=== PATIENT | male | born 1990 | race Caucasian/White ===

== ENCOUNTER 2018-03-04 22:59 | Inpatient (IN) | payer MEDICAID ==
--- NOTE | 2018-03-04 22:35 | EDPHY ---
HPI/HX/ROS/PE/MDM - Data Points Imaging: Discussed imaging studies w/ national accounts recruiter Radiologist Narrative: CHIEF COMPLAINT: Overdose HISTORY OF PRESENT ILLNESS: The patient is a 23 y/o male with a history of hepatitis C arriving via EMS for an overdose tonight. When EMS arrived the patient was found unresponsive on the floor at [employer]. There was a pack of syringes next to him and track hinojosa on his arms. He was given 4 of Narcan internasally and woke up shortly after. His pupils were 4mm bilaterally. EMS gave the patient 4mg IV Zofran while en route to the emergency department. At this time the patient is awake, but not answering any questions or interacting with us. At one point he mumbled "fuck you". However, he is primarily non-communicative. On arrival he is a sarah faye as he will not or can not tell us his name. REVIEW OF SYSTEMS: Unable to obtain due to patient's non-communicative status. PAST MEDICAL HISTORY: Hepatitis C SOCIAL HISTORY: Single, homeless, polysubstance abuse VITAL SIGNS: Reviewed by me GENERAL: Myoclonic jerking movements with protective maneuvers. Tearful. Well- developed, well-nourished, in no respiratory distress. HEENT: Atraumatic. Eyes: 4mm reactive pupils. No icterus, no injection. Mouth: Unable to examine as patient has mouth clenched shut. Neck: supple with no adenopathy. LUNGS: Clear to auscultation bilaterally, no wheezes, rhonchi or rales. CARDIAC: Regular rate and rhythm, no rubs, murmurs or gallops. ABDOMEN: Soft, no guarding or rebound, nondistended, bowel sounds normal. BACK: No CVA tenderness. EXTREMITIES: No trauma. No edema. NEURO: CHIANG x 4, protective behavior with arm drop. Intermittently appears to be responding to external stimuli-- looking off into the distance and not responding to us in any way. SKIN: Warm and dry, no rash. PSYCHIATRIC: Unable to assess. Portions of this note were transcribed by a medical equipment repair technician. I personally performed a history, physical exam, medical decision making, and confirmed accuracy of information the transcribed note. (Kristina Dudley) ED Course: 7am: I assumed care of this patient at shift change. He presents with altered mental status after being found in the bathroom at [employer]. He has been here over 8 hr and still is quite altered. On my exam, he arouses to sternal rub and looks at me. However he continues to be nonverbal. Given prolonged altered mental status, I will plan to admit him for observation if AMS continues. 0745: opens eyes to sternal rub, no change in mental status. The hospitalist service was consulted for admission. 0830: no change in mental status. Transported to Step-Down Unit. (Zee Espinoza) 6:50 a.m.- (Kinsey Palomino) The patient is a 23 y/o male with a history of hepatitis C arriving via EMS for an overdose tonight. On exam he has 4mm reactive pupils and is tearful. He also has myoclonic jerking movements with protective maneuvers and is mumbling. Labs , EKG, and head CT ordered. 1mg IV Ativan administered. 2236: I met EMS upon arrival. 2244: 12-LEAD EKG: Please see the full report in [facility]. My interpretation: Normal sinus rhythm with a rate of 93, nonspecific ST elevations that are probably early repolarizations. Patient's head CT was negative. Laboratory evaluation including a CBC, electrolytes, LFTs, troponin, CPK are all largely unremarkable. Patient does have some mild elevations of his AST and ALT possibly consistent with his hepatitis-C history. Alcohol is negative. 2345: Patient care has been turned over to Dr. Palomino . Urine tox screen is pending at this time. Plan for continued observation, clearance of potential ingestions, and possible discharged home. (Kristina Dudley) MDM: 6:00 a.m.- U tox was positive for amphetamines and opiates, raising suspicion for opiate intoxication currently. He is now off of supplemental oxygen which she required transiently. He is breathing normally with unremarkable vital signs. He is still quite sedate and not appropriate for discharge. 6:50 a.m.- The patient continues to be asleep, he is still not ready for discharge given his mental status. I anticipate he will be able to go later this morning. The case will be signed out to the oncoming provider Dr. Espinoza. (Kinsey Palomino) After the history was obtained and physical exam performed, the following differential for the patient's altered mental status was considered included but was not limited to hypoglycemia, electrolyte disturbances, intracranial hemorrhage, tumor, drug or alcohol intoxication, stroke, or TIA. (Kristina Dudley ) - Data Points Imaging Results: Imaging Impressions Head CT 03/04/18 22:53 Impression: Mild chronic sinus related change right sphenoid sinus. No evidence for acute intracranial abnormality. Results called and discussed with Kristina Dudley MD at 03/04/2018 23:39. Laboratory Results: Laboratory Results 03/04/18 22:40 03/04/18 22:40 03/04/18 03/04/18 03/04/18 23:55 22:44 22:40 WBC RBC Hgb POC Hgb 13.3 gm/dL L gm/dL (13.7-17.5) Hct POC Hct 39 % L % (40-51) MCV MCH MCHC RDW Plt Count MPV Neut % (Auto) Lymph % (Auto) [place] % (Auto) Eos % (Auto) Baso % (Auto) Nucleat RBC Rel Count Absolute Neuts (auto) Absolute Lymphs (auto) Absolute Monos (auto) Absolute Eos (auto) Absolute Basos (auto) Absolute Nucleated RBC Immature Gran % Immature Gran # POC Sodium 140 mEq/L mEq/L (135-145) Sodium 139 mEq/L mEq/L (135-145) POC Potassium 4.1 mEq/L mEq/L (3.3-5.0) Potassium 4.4 mEq/L mEq/L (3.3-5.0) POC Chloride 98 mEq/L mEq/L (97-110) Chloride 98 mEq/L mEq/L (97-110) Carbon Dioxide 31 mEq/l mEq/l (22-31) Anion Gap 10 mEq/L mEq/L (8-16) POC BUN 19 mg/dL mg/dL (7-23) BUN 18 mg/dL mg/dL (7-23) Creatinine 1.0 mg/dL mg/dL (0.7-1.3) POC Creatinine 1.1 mg/dL mg/dL (0.7-1.3) Estimated GFR > 60 Glucose 90 mg/dL mg/dL (70-100) POC Glucose 95 mg/dL mg/dL (70-100) Calcium 8.8 mg/dL mg/dL (8.5-10.4) Total Bilirubin 1.5 mg/dL H mg/dL (0.1-1.4) Conjugated Bilirubin 0.5 mg/dL mg/dL (0.0-0.5) Unconjugated Bilirubin 1.0 mg/dL mg/dL (0.0-1.1) AST 124 IU/L H IU/L (17-59) ALT 216 IU/L H IU/L (21-72) Alkaline Phosphatase 95 IU/L IU/L (38-126) Creatine Kinase 217 IU/L IU/L (0-224) Troponin I < 0.012 ng/mL ng/mL (0.000-0.034) Total Protein 7.5 g/dL g/dL (6.3-8.2) Albumin 4.1 g/dL g/dL (3.5-5.0) Lipase 28 IU/L IU/L (23-300) Urine Color YELLOW Urine Appearance CLEAR Urine pH 5.0 (5.0-7.5) Ur Specific [place] 1.010 (1.002-1.030) Urine Protein NEGATIVE (NEGATIVE) Urine Ketones NEGATIVE (NEGATIVE) Urine Blood NEGATIVE (NEGATIVE) Urine Nitrate NEGATIVE (NEGATIVE) Urine Bilirubin NEGATIVE (NEGATIVE) Urine Urobilinogen NEGATIVE EU EU (0.2-1.0) Ur Leukocyte Esterase NEGATIVE (NEGATIVE) Urine RBC NONE SEEN /hpf /hpf (0-3) Urine WBC 1-3 /hpf /hpf (0-3) Ur Epithelial Cells NONE SEEN /lpf /lpf (NONE-1+) Urine Bacteria TRACE /hpf H /hpf (NONE SEEN) Urine Mucus TRACE /lpf /lpf (NONE-1+) Urine Sperm PRESENT /hpf /hpf (NONE SEEN) Urine Glucose NEGATIVE (NEGATIVE) Salicylates < 1.0 mg/dL L mg/dL (2.0-20.0) Urine Opiates Screen NON-NEGATIVE H (NEGATIVE) Acetaminophen < 10 mcg/mL L mcg/mL (10-30) Urine Barbiturates NEGATIVE (NEGATIVE) Ur Phencyclidine Scrn NEGATIVE (NEGATIVE) Ur Amphetamine Screen NON-NEGATIVE H (NEGATIVE) U Benzodiazepines Scrn NEGATIVE (NEGATIVE) Urine Cocaine Screen NEGATIVE (NEGATIVE) U Marijuana (THC) Screen NEGATIVE (NEGATIVE) Ethyl Alcohol < 10 mg/dL mg/dL (0-10) 03/04/18 22:40 WBC 7.53 10^3/uL 10^3/uL (3.80-9.50) RBC 4.44 10^6/uL 10^6/uL (4.40-6.38) Hgb 13.1 g/dL L g/dL (13.7-17.5) POC Hgb Hct 39.8 % L % (40.0-51.0) POC Hct MCV 89.6 fL fL (81.5-99.8) MCH 29.5 pg pg (27.9-34.1) MCHC 32.9 g/dL g/dL (32.4-36.7) RDW 15.6 % H % (11.5-15.2) Plt Count 271 10^3/uL 10^3/uL (150-400) MPV 9.1 fL fL (8.7-11.7) Neut % (Auto) 51.3 % % (39.3-74.2) Lymph % (Auto) 31.6 % % (15.0-45.0) [place] % (Auto) 13.4 % H % (4.5-13.0) Eos % (Auto) 2.5 % % (0.6-7.6) Baso % (Auto) 0.8 % % (0.3-1.7) Nucleat RBC Rel Count 0.0 % % (0.0-0.2) Absolute Neuts (auto) 3.86 10^3/uL 10^3/uL (1.70-6.50) Absolute Lymphs (auto) 2.38 10^3/uL 10^3/uL (1.00-3.00) Absolute Monos (auto) 1.01 10^3/uL H 10^3/uL (0.30-0.80) Absolute Eos (auto) 0.19 10^3/uL 10^3/uL (0.03-0.40) Absolute Basos (auto) 0.06 10^3/uL 10^3/uL (0.02-0.10) Absolute Nucleated RBC 0.00 10^3/uL 10^3/uL (0-0.01) Immature Gran % 0.4 % % (0.0-1.1) Immature Gran # 0.03 10^3/uL 10^3/uL (0.00-0.10) POC Sodium Sodium POC Potassium Potassium POC Chloride Chloride Carbon Dioxide Anion Gap POC BUN BUN Creatinine POC Creatinine Estimated GFR Glucose POC Glucose Calcium Total Bilirubin Conjugated Bilirubin Unconjugated Bilirubin AST ALT Alkaline Phosphatase Creatine Kinase Troponin I Total Protein Albumin Lipase Urine Color Urine Appearance Urine pH Ur Specific [place] Urine Protein Urine [place]ones Urine Blood Urine Nitrate Urine Bilirubin Urine Urobilinogen Ur Leukocyte Esterase Urine RBC Urine WBC Ur Epithelial Cells Urine Bacteria Urine Mucus Urine Sperm Urine Glucose Salicylates Urine Opiates Screen Acetaminophen Urine Barbiturates Ur Phencyclidine Scrn Ur Amphetamine Screen U Benzodiazepines Scrn Urine Cocaine Screen U Marijuana (THC) Screen Ethyl Alcohol Medications Given: Discontinued Medications Sodium Chloride (Ns) 1,000 mls @ 0 mls/hr IV ONCE ONE; Wide Open PRN Reason: Protocol Stop: 03/04/18 23:51 Last Admin: 03/04/18 23:55 Dose: 1,000 mls Lorazepam (Ativan Injection) 1 mg IVP EDNOW ONE Stop: 03/04/18 22:56 Last Admin: 03/04/18 22:55 Dose: 1 mg Point of Care Test Results: 03/04/18 22:44 POC Sodium 140 POC Potassium 4.1 POC Chloride 98 POC BUN 19 POC Creatinine 1.1 POC Glucose 95 General Time Seen by Provider: 03/04/18 22:36 Initial Vital Signs: Initial Vital Signs Temperature (C) 36.4 C 03/04/18 22:41 Heart Rate 93 03/04/18 22:41 Respiratory Rate 17 03/04/18 22:41 Blood Pressure 127/101 H 03/04/18 22:41 O2 Sat (%) 94 03/04/18 22:41 O2 Delivery Mode Room Air O2 (L/minute) 2 Allergies/Adverse Reactions: No Known Allergies Allergy (Unverified 03/05/18 14:27) Home Medications: Medication Instructions Recorded Mirtazapine [Remeron] 30 mg PO BID 03/05/18 Multivitamins [Multivitamin (*)] 1 each PO DAILY 03/05/18 OLANZapine [Zyprexa] 20 mg PO HS 03/05/18 busPIRone [Buspar (*)] 20 mg PO BID 03/05/18 Departure - Departure Disposition: [facility] Acute Clinical Impression: Polysubstance abuse, Opiate use Condition: Good Report Scribed for: Kristina Dudley Report Scribed by: Diane Rivas Date of Report: 03/04/18 Time of Report: 22:35
--- NOTE | 2018-03-04 22:51 | CPEKG ---
Heart Rate: 93 RR Interval: 645 P-R Interval: 200 QRSD Interval: 106 QT Interval: 372 QTC Interval: 463 P [place]: 57 QRS [place]: 63 T Wave [place]: 50 EKG Severity - OTHERWISE NORMAL ECG - EKG Impression: SINUS RHYTHM EKG Impression: VENTRICULAR PREMATURE COMPLEX EKG Impression: ST ELEV, PROBABLE NORMAL EARLY REPOL PATTERN Electronically Signed By: Kristina Dudley 05-Mar-2018 00:01:17
[~2018-03-04 22:59] MED LIST: LORazepam 2 MG/ML INJ IVP ONE; LORazepam 2 MG/ML INJ ONE
[2018-03-04 23:00] LABS: PLATELET COUNT 271 10^3/uL (150-400)
[2018-03-04 23:25] LABS: CREATINE KINASE 217 IU/L (0-224)
[2018-03-04] MEDS ORDERED: NS 1,000 ML IV ONE (23:50)
[2018-03-05] MEDS ORDERED: PROMETHAZINE HCL 25 MG/ML INJ IVP PRN (09:15)
[2018-03-05] MEDS ORDERED: ONDANSETRON 4 MG/2 ML VIAL IVP PRN (09:15)
--- NOTE | 2018-03-05 09:22 | PDGENHP ---
History and Physical - Chief Complaint Acute unresponsiveness - History of Present Illness Primary care provider: Unknown HPI: 23-year-old male presenting with acute unresponsiveness, found down on the floor in the bathroom [place] [employer], with some visible syringes on his person. EMS was called, patient received 4 mg of Narcan intranasally, and he became slightly more arousable. He was transported to the [facility] Emergency Department, where he continued to be responsive only to painful stimuli, intermittently mumbling, and not following commands. He was in the emergency department in this state for approximately 8 hr without demonstrable improvement. He did receive additional Narcan as well as Ativan during that interval. The patient was unable to provide any additional history. He remained hemodynamically stable during his care in the emergency department and he did not have any witnessed aspiration. History Information - Allergies/Home Medication List Allergies/Adverse Reactions: Unable to Assess Allergy (Unverified 03/04/18 22:49) I have personally reviewed and updated: family history, medical history, social history, surgical history - Past Medical History Additional medical history: Reports bipolar disease, reports that he is on Zyprexa and Remeron, reports he has not been taking recently - Surgical History Additional surgical history: Unobtainable from the patient at this time - Family History Additional family history: Unobtainable from the patient at this time - Social History Smoking Status: Unknown if ever smoked Additional social history: Unobtainable from the patient at this time Review of Systems Review of Systems: ROS: 10pt was reviewed & negative except for what was stated in HPI & below ( Otherwise unobtainable from the patient at this time) Neurological: Reports: other (Unresponsiveness) Physical Exam Physical Exam: Temp Pulse Resp BP Pulse Ox 36.6 C 72 10 L 126/64 H 98 03/05/18 08:57 03/05/18 08:57 03/05/18 08:57 03/05/18 08:57 03/05/18 08:57 Constitutional: no apparent distress, appears nourished, not in pain, other ( Somewhat sweaty appearing), No uncomfortable Eyes: other (People's mildly dilated, reactive to light, roving, able to track) Ears, Nose, Mouth, Throat: other (Sticky secretions on his lips, patient unable to fully open his mouth for full exam) Cardiovascular: regular rate and rhythym, no murmur, rub, or gallop, No edema Respiratory: no respiratory distress, no rales or rhonchi, clear to auscultation , other (poor effort) Gastrointestinal: normoactive bowel sounds, distension (mildly), No tenderness, No guarding Genitourinary: other (full bladder) Skin: other (track micah R antecubital fossa, blanching confluent RUE dorsally w/ o overt induration or fluctuance, no track hinojosa on feet, achne on face) Neurologic: other (verbalizes some one word answers, moving limbs spontaneously , intermittently) Psychiatric: other (no following commands, responds to speaker to voice) Lab Data & Imaging Review 03/04/18 22:40 03/04/18 22:40 WBC 7.53 10^3/uL (3.80-9.50) 03/04/18 22:40 RBC 4.44 10^6/uL (4.40-6.38) 03/04/18 22:40 Hgb 13.1 g/dL (13.7-17.5) L 03/04/18 22:40 POC Hgb 13.3 gm/dL (13.7-17.5) L 03/04/18 22:44 Hct 39.8 % (40.0-51.0) L 03/04/18 22:40 POC Hct 39 % (40-51) L 03/04/18 22:44 MCV 89.6 fL (81.5-99.8) 03/04/18 22:40 MCH 29.5 pg (27.9-34.1) 03/04/18 22:40 MCHC 32.9 g/dL (32.4-36.7) 03/04/18 22:40 RDW 15.6 % (11.5-15.2) H 03/04/18 22:40 Plt Count 271 10^3/uL (150-400) 03/04/18 22:40 MPV 9.1 fL (8.7-11.7) 03/04/18 22:40 Neut % (Auto) 51.3 % (39.3-74.2) 03/04/18 22:40 Lymph % (Auto) 31.6 % (15.0-45.0) 03/04/18 22:40 [place] % (Auto) 13.4 % (4.5-13.0) H 03/04/18 22:40 Eos % (Auto) 2.5 % (0.6-7.6) 03/04/18 22:40 Baso % (Auto) 0.8 % (0.3-1.7) 03/04/18 22:40 Nucleat RBC Rel Count 0.0 % (0.0-0.2) 03/04/18 22:40 Absolute Neuts (auto) 3.86 10^3/uL (1.70-6.50) 03/04/18 22:40 Absolute Lymphs (auto) 2.38 10^3/uL (1.00-3.00) 03/04/18:40 Absolute Monos (auto) 1.01 10^3/uL (0.30-0.80) H 03/04/18 22:40 Absolute Eos (auto) 0.19 10^3/uL (0.03-0.40) 03/04/18 22:40 Absolute Basos (auto) 0.06 10^3/uL (0.02-0.10) 03/04/18 22:40 Absolute Nucleated RBC 0.00 10^3/uL (0-0.01) 03/04/18:40 Immature Gran % 0.4 % (0.0-1.1) 03/04/18:40 Immature Gran # 0.03 10^3/uL (0.00-0.10) 03/04/18 22:40 POC Sodium 140 mEq/L (135-145) 03/04/18 22:44 Sodium 139 mEq/L (135-145) 03/04/18 22:40 POC Potassium 4.1 mEq/L (3.3-5.0) 03/04/18 22:44 Potassium 4.4 mEq/L (3.3-5.0) 03/04/18 22:40 POC Chloride 98 mEq/L (97-110) 03/04/18 22:44 Chloride 98 mEq/L (97-110) 03/04/18 22:40 Carbon Dioxide 31 mEq/l (22-31) 03/04/18 22:40 Anion Gap 10 mEq/L (8-16) 03/04/18 22:40 POC BUN 19 mg/dL (7-23) 03/04/18 22:44 BUN 18 mg/dL (7-23) 03/04/18 22:40 Creatinine 1.0 mg/dL (0.7-1.3) 03/04/18 22:40 POC Creatinine 1.1 mg/dL (0.7-1.3) 03/04/18 22:44 Estimated GFR > 60 03/04/18 22:40 Glucose 90 mg/dL (70-100) 03/04/18 22:40 POC Glucose 95 mg/dL (70-100) 03/04/18 22:44 Calcium 8.8 mg/dL (8.5-10.4) 03/04/18 22:40 Total Bilirubin 1.5 mg/dL (0.1-1.4) H 03/04/18 22:40 Conjugated Bilirubin 0.5 mg/dL (0.0-0.5) 03/04/18 22:40 Unconjugated Bilirubin 1.0 mg/dL (0.0-1.1) 03/04/18 22:40 AST 124 IU/L (17-59) H 03/04/18 22:40 ALT 216 IU/L (21-72) H 03/04/18 22:40 Alkaline Phosphatase 95 IU/L (38-126) 03/04/18 22:40 Creatine Kinase 217 IU/L (0-224) 03/04/18 22:40 Troponin I < 0.012 ng/mL (0.000-0.034) 03/04/18 22:40 Total Protein 7.5 g/dL (6.3-8.2) 03/04/18 22:40 Albumin 4.1 g/dL (3.5-5.0) 03/04/18 22:40 Lipase 28 IU/L (23-300) 03/04/18 22:40 Urine Color YELLOW 03/04/18 23:55 Urine Appearance CLEAR 03/04/18 23:55 Urine pH 5.0 (5.0-7.5) 03/04/18 23:55 Ur Specific [place] 1.010 (1.002-1.030) 03/04/18 23:55 Urine Protein NEGATIVE (NEGATIVE) 03/04/18 23:55 Urine Ketones NEGATIVE (NEGATIVE) 03/04/18 23:55 Urine Blood NEGATIVE (NEGATIVE) 03/04/18 23:55 Urine Nitrate NEGATIVE (NEGATIVE) 03/04/18 23:55 Urine Bilirubin NEGATIVE (NEGATIVE) 03/04/18 23:55 Urine Urobilinogen NEGATIVE EU (0.2-1.0) 03/04/18 23:55 Ur Leukocyte Esterase NEGATIVE (NEGATIVE) 03/04/18 23:55 Urine RBC NONE SEEN /hpf (0-3) 03/04/18 23:55 Urine WBC 1-3 /hpf (0-3) 03/04/18 23:55 Ur Epithelial Cells NONE SEEN /lpf (NONE-1+) 03/04/18 23:55 Urine Bacteria TRACE /hpf (NONE SEEN) H 03/04/18 23:55 Urine Mucus TRACE /lpf (NONE-1+) 03/04/18 23:55 Urine Sperm PRESENT /hpf (NONE SEEN) 03/04/18 23:55 Urine Glucose NEGATIVE (NEGATIVE) 03/04/18 23:55 Salicylates < 1.0 mg/dL (2.0-20.0) L 03/04/18 22:40 Urine Opiates Screen NON-NEGATIVE (NEGATIVE) H 03/04/18 23:55 Acetaminophen < 10 mcg/mL (10-30) L 03/04/18 22:40 Urine Barbiturates NEGATIVE (NEGATIVE) 03/04/18 23:55 Ur Phencyclidine Scrn NEGATIVE (NEGATIVE) 03/04/18 23:55 Ur Amphetamine Screen NON-NEGATIVE (NEGATIVE) H 03/04/18 23:55 U Benzodiazepines Scrn NEGATIVE (NEGATIVE) 03/04/18 23:55 Urine Cocaine Screen NEGATIVE (NEGATIVE) 03/04/18 23:55 U Marijuana (THC) Screen NEGATIVE (NEGATIVE) 03/04/18 23:55 Ethyl Alcohol < 10 mg/dL (0-10) 03/04/18 22:40 Visualized and Interpreted EKG results: Yes EKG Interpretation: Positive for: other (Sinus mechanism, isolated ST elevation in V2) Assessment & Plan Assessment: 23-year-old male presents with acute encephalopathy in the setting of suspected opiate overdose Plan: 1. Acute encephalopathy. New problem this provider, further workup indicated. Unresponsiveness with delayed recovery, most likely secondary to unintentional opiate overdose with drug paraphernalia found on the patient's person, urine tox positive for opiates, and responsiveness to Narcan -patient currently not demonstrating evidence of airway compromise, continue on 2 L nasal cannula supportive care -check chest x-ray to ensure no aspiration -given patient's protracted course, monitor him closely for cognitive and functional recovery in the step-down unit, and obtain additional history from patient once he has regained the ability to speak and communicate clearly -bedside swallow eval, then advance diet to regular if tolerates -physical, occupational, speech therapy evaluations all placed, perform as needed depending on patient's recovery -avoid any sedating medications, as the patient will likely begin to demonstrate responsiveness and if he becomes agitated, then we should reassess whether the patient demonstrates capacity to make medical decisions and direct his own care rather than medicating him with sedating medications 2. Suspected opiate overdose. Is unclear whether intentional versus unintentional, will require additional history taking once the patient is able to verbally communicate, positive tox screen, right upper extremity track hinojosa with likely site irritation rather than cellulitis, with normal white blood cell count, no fever -discussed with social work, they will provide additional counseling assistance the patient once he is more awake and communicative -[facility] behavioral health nurse consult requested, to assist in facilitating care for possible drug addiction -evidence of transaminitis, suspect patient may have hep C, will consent patient for HIV and hep C testing when he is more communicative -patient will require outpatient follow up with primary care provider 3. Acute urinary retention. Bladder scan with greater than 500 cc, straight catheterization demonstrating 900 mL of urine, retention most likely secondary to opiate overdose -avoid Good catheter, straight cath as needed, patient attempted to utilize urinal unsuccessfully, continue to encourage urinal use 4. Bipolar disease. Unclear type, reported history per patient, patient reports he has not recently been on his home medications which are Zyprexa and Remeron -patient's presentation is more consistent with an opiate overdose rather than malignant catatonia, with normal CPK and normal white blood cell count -given the patient reported that he has not been taking his home medications it is unlikely that his current presentation is secondary to a polypharmacy overdose -patient will require reestablishment of outpatient mental health services, assistance from social work and [facility] requested Diet. Swallow eval, then regular passes Prophylaxis. High risk patient, Lovenox for Code. Full at present Disposition. Anticipated discharge is 03/05 versus 03/06, depending on patient's physical and cognitive recovery. Discussed patient's presentation with Zee Espinoza in the emergency department, she has reported to me the patient demonstrated protracted encephalopathy and required additional monitoring, we both agree that the step-down unit is most appropriate location for this. 40 min of critical care time spent with this patient, addressing the conditions outlined above, coordinating his care with the above-mentioned providers, patient remains high risk of worsening morbidity and/or mortality if he develops any complications from his suspected opiate overdose and resultant encephalopathy, remaining critically ill at this time.
[2018-03-05] MEDS ORDERED: NON-FORMULARY NEW DRUG (Olanzapine [Zyprexa] 20 MG) PO SCH (21:00)
[2018-03-05] MEDS: MIRTAZAPINE 30 MG TAB PO SCH (21:04)
[2018-03-05] MEDS: OLANZapine DISINTEGR 10 MG TAB PO SCH (21:04)
[2018-03-05] MEDS: busPIRone 10 MG TAB PO SCH (21:04)
[2018-03-06 04:57] LABS: PLATELET COUNT 263 10^3/uL (150-400)
[2018-03-06] MEDS: busPIRone 10 MG TAB PO SCH ×2 (08:02→22:34)
[2018-03-06] MEDS: MIRTAZAPINE 30 MG TAB PO SCH ×2 (08:02→22:34)
[2018-03-06] MEDS: ENOXAPARIN 40 MG/0.4 ML SYR SC SCH (08:02)
[2018-03-06] MEDS: MULTIVITAMINS 1 EACH TAB PO SCH (08:02)
--- NOTE | 2018-03-06 09:33 | PDMN ---
Medical Necessity Medical necessity: Patient meets inpatient criteria per physician note and MCG M -153 Drug Ingestion or Overdose (persistent acute encephalopathy d/to suspected opiate overdose; progressively more lethargic during the day, now minimally responsive; anticipated LOS > 2 midnights for ongoing close surveillance in SDU. )
--- NOTE | 2018-03-06 18:08 | HOSPPROG ---
Hospitalist Progress Note Assessment/Plan: Assessment: 23-year-old male presents with acute encephalopathy in the setting of suspected opiate overdose Plan: 1. Acute encephalopathy. Ongoing lethargy today, patient arousable to verbal stimuli, not engaging but he is able to perform certain self-care (self-feeding) -he remains very withdrawn and lethargic, and I suspect that he is experiencing amphetamine withdraw, as his tox was positive for amphetamines and overwhelming fatigue is a hallmark feature -although patient is able to now verbally respond to some questions, he reports he is very fatigued and can barely move, has very limited interaction -d/w Dr. Millard on rounds, we agree that most appropriate location of care is med surg, allow for gradual recovery 2. Suspected opiate overdose. Is unclear whether intentional versus unintentional, patient was recovered from the [employer] bathroom and had drug paraphenalia on his person w/ reported narcan in his bag, responded to narcan administered by EMS -no airway compromise, weaned to room air -requires SW counseling to assist w/ resources -patient reports to me that he is homeless, lives in [place], does not have any family/friends locally, and he is afraid of legal consequences as he may be on probation 3. Acute urinary retention. 2/2 opiates, resolved 4. Bipolar disease. Unclear type, reported history per patient, patient reports he has not recently been on his home medications -restarted home medications -resource RN unavailable to see patient, appreciate SW assistance w/ reconnecting him to outpt mental health resources 5. Sunburn. RUE, cont to monitor 6. Transaminitis. Likely 2/2 HCV, given that he has IVDU, check HCV and HIV status Diet. Reg Prophylaxis. High risk patient, Lovenox 40 Code. Full Disposition. ADD 6/2, pending ability to interact, perform self-care Subjective: patient reports he is too fatigued to keep eyes open or interact more on exam Objective: Vital Signs Temp Pulse Resp BP Pulse Ox 37.0 C 104 H 16 129/76 H 94 03/06/18 15:11 03/06/18 15:11 03/06/18 15:11 03/06/18 15:11 03/06/18 15:11 Laboratory Results 03/06/18 04:51 03/06/18 04:51 03/05/18 03/06/18 03/07/18 05:59 05:59 05:59 Intake Total 1720 500 Output Total 4650 1000 Balance -2930 -500 - Physical Exam Constitutional: no apparent distress, not in pain, unkempt, other (sweaty), No uncomfortable Eyes: PERRL, anicteric sclera, EOMI Cardiovascular: No systolic murmur, No irregularly irregular, No tachycardia, No edema Respiratory: no respiratory distress, no rales or rhonchi, clear to auscultation Gastrointestinal: normoactive bowel sounds, soft, non-tender abdomen, no palpable masses, No distension Skin: other (track micah R antecubital fossa, blanching sunburn R arm dorsal surface) Psychiatric: not anxious, flat affect, other (one-word answers, unengaged interaction, does not follow commands), No agitated ICD10 Worksheet Patient Problems: Problems Problem Status Onset Polysubstance abuse Acute Opiate use Acute
[2018-03-06] MEDS: OLANZapine DISINTEGR 10 MG TAB PO SCH (22:34)
[2018-03-07] MEDS: NS 1,000 ML IV SCH ×2 (06:33→12:41)
[2018-03-07] MEDS: MULTIVITAMINS 1 EACH TAB PO SCH (07:58)
[2018-03-07] MEDS: busPIRone 10 MG TAB PO SCH (07:58)
[2018-03-07] MEDS: MIRTAZAPINE 30 MG TAB PO SCH (07:58)
[2018-03-07] MEDS: ENOXAPARIN 40 MG/0.4 ML SYR SC SCH (07:59)
[2018-03-07 08:14] LABS: PLATELET COUNT 260 10^3/uL (150-400)
[2018-03-07 08:25] VITALS: BP 144/86
--- NOTE | 2018-03-07 13:03 | HOSPPROG ---
Hospitalist Progress Note Assessment/Plan: 3-year-old male presents with acute encephalopathy in the setting of suspected opiate overdose. patient was recovered from the [employer] bathroom and had drug paraphenalia on his person w/ reported narcan in his bag, responded to narcan administered by [facility] encounter, chart reviewed. D/W SW and RN. Plan: # Acute encephalopathy. -resolved -Ongoing lethargy #Depression -patient arousable to verbal stimuli, not engaging but he is able to perform certain self-care (self-feeding) -he remains very withdrawn and lethargic -[facility] eval -contracts for safety #Amphetamine withdrawal -stable -lethargic, withdrawn -tox was positive for amphetamines and overwhelming fatigue is a hallmark feature -he reports he is very fatigued and can barely move, has very limited interaction # Suspected opiate overdose. -unintentional per pt -no airway compromise, weaned to room air -requires SW counseling to assist w/ resources -patient reports that he is homeless, lives in [place], does not have any family/ friends locally, and he is afraid of legal consequences as he may be on probation # Acute urinary retention. -2/2 opiates, resolved # Bipolar disease. -Unclear type, reported history per patient, patient reports he has not recently been on his home medications -restarted home medications -resource RN unavailable to see patient, appreciate SW assistance w/ reconnecting him to outpt mental health resources -[facility] eval # Sunburn. -RUE, stable # Transaminitis. -Hep panel,HIV pending #Dispo -medically ready for DC -await further psych eval from [facility] -D/W SW Subjective: Minimal interaction. Denies pain. Not hungry. Objective: Vital Signs Temp Pulse Resp BP Pulse Ox 36.6 C 88 12 144/86 H 94 03/07/18 08:00 03/07/18 08:00 03/07/18 08:00 03/07/18 08:00 03/07/18 08:00 Laboratory Results 03/07/18 08:10 03/07/18 08:10 03/06/18 03/07/18 03/08/18 05:59 05:59 05:59 Intake Total 1720 650 Output Total 4650 1700 750 Balance -2930 -1050 -750 - Physical Exam Constitutional: appears nourished, not in pain, uncomfortable Eyes: PERRL, anicteric sclera, EOMI Ears, Nose, Mouth, Throat: hearing normal, poor dentition, dry mucous membranes Cardiovascular: No JVD, No tachycardia, No edema Respiratory: no respiratory distress, no rales or rhonchi, reduced air movement Gastrointestinal: normoactive bowel sounds, No tenderness, No ascites Skin: warm, abrasion, erythema Musculoskeletal: normal joint ROM, no joint effusions, generalized weakness Neurologic: AAOx3 Psychiatric: not encephalopathic, depressed, flat affect, poor insight, poor judgement, No interacting appropriately, No suicidal ideation ICD10 Worksheet Patient Problems: Problems Problem Status Onset Polysubstance abuse Acute Opiate use Acute
--- NOTE | 2018-03-07 15:33 | ASDISCHSUM ---
Discharge Information Plan Status:Home with No Needs Medically Cleared to Leave:03/07/2018 Discharge Date:03/07/2018 CM D/C Disposition:Against Medical Advice ADT D/C Disposition: Projected Discharge Date:03/07/2018 Transportation at D/C:Self Discharge Delay Reason: Follow-Up Date:03/07/2018 Discharge Slot: Final Diagnosis: Placement Information Patient Contact Information Contact Name:NPPT Relationship: Address: Home Phone: Work Phone: City: Alternate Phone: State/[place] Search Code: Email: Financial Information Financial Class:Medicaid Primary Plan Desc:[employer] [place] [place] Primary Plan Number:[id number] Secondary Plan Desc: Secondary Plan Number: Assessment Information Intervention Information
--- NOTE | 2018-03-07 16:22 | ASMTCMCOM ---
CM Note CM Note Notes: Pt was admitted with a drug OD after being found down in the [employer] store. He had Narcan in his bag which bacon stringer administered. He has a hx of Bipolar d/o and has been off his meds. Pt states he is homeless and usually stays in the [place] area. He did not elaborate on why he was in [place]. He has a sister in [place] and told his RN he isn't in touch with her or his mother. He seemed interested in some resources earlier today but was quite somnolent and difficult to arouse to talk with. Hospitalist requested a [facility] psych eval prior to d/c. When [facility] analysis evaluator attempted to speak with him, he became verbally aggressive and demanded his IV out and said he wanted to leave. Pt is leaving AMA. Date Signed: 03/07/2018 04:22 PM Electronically Signed By:LETHA Brandt
--- NOTE | 2018-03-07 16:24 | ASMTLACE ---
LACE Length of stay for Answers: 2 days current admission Acuity / Level of Answers: Yes Care: Did the patient have an inpatient admission? # of Emergency department Answers: 1-2 visits in the last 6 months Social determinants Answers: History of substance abuse (ETOH, street drugs, prescription drugs, etc.) Homelessness (street, skilled nursing) Mental health diagnosis (anxiety, depression, pers onality disorders, etc.) Lack of community resources and/or lack of social support (no pcp, lives alone, transportation, david d) Score: 19 Date Signed: 03/07/2018 04:23 PM Electronically Signed By:LETHA Brandt
--- NOTE | 2018-03-08 11:10 | GDS ---
[f rep st] DISCHARGE SUMMARY DISCHARGE DIAGNOSES: 1. Acute encephalopathy. 2. Depression. 3. Amphetamine withdrawal. 4. Suspected opioid overdose. 5. Urinary retention. 6. Bipolar disorder. 7. Sunburn. 8. Transaminitis. CONSULTATIONS: [facility]. STUDIES/PROCEDURES: CT of the head. PHYSICAL EXAMINATION: GENERAL: The patient is alert. VITAL SIGNS: Afebrile at 36.6, pulse is 88, respiratory rate is 12, blood pressure is 144/86. He is saturating 94% on room air. I have seen toby cervantesated the patient on the day of discharge. HOSPITAL COURSE: The patient is a 28-year-old male who was found down and brought to the emergency r oom. He was evaluated and diagnosed with: 1. Acute encephalopathy. This is in the setting of drug use. He received Narcan and responded well . His encephalopathy has resolved. 2. Suspected opiate overdose. This is unintentional per the patient. He denies any suicidal ideati on. He did receive evaluation from [facility], who had cleared him to be discharged from the hospital. He is able to contract for safety. Social Work has been involved and he will be discharged to the [facility]. 3. Amphetamine withdrawal. This is stable and is able to managed in the outpatient setting. 4. Depression. The patient is depressed; however, [facility] has evaluated. He is trish for safety and is not suicidal. 5. Bipolar disorder. His medications have been continued. It is recommended that he continue to ta ke these medications in the outpatient setting. 6. Transaminitis. LFTs are improving. Hepatitis panel is pending at the time of disposition. DISPOSITION: On discharge, the patient will be discharged to the street as he is homeless. Social Nidhi brewer has provided any resources that are available. Followup will be at [facility], which has be en arranged for him. DISCHARGE MEDICATIONS: Please refer to EMR form. I have not provided the patient any prescriptions at the time of disposition. I spent greater than 35 minutes in the care, coordination, and management of this patient's discharge . /[id number]/MODL
[2018-03-09 04:10] LABS: HEPATITIS B SURFACE ANTIGEN NEGATIVE (NEGATIVE)
[2018-03-09 04:16] LABS: HEPATITIS A ANTIBODY IGM (BCH) NEGATIVE (NEGATIVE); HEPATITIS B CORE AB IGM NEGATIVE (NEGATIVE)
[2018-03-09 04:27] LABS: HEPATITIS C ANTIBODY TOTAL REACTIVE (NEGATIVE)
[2018-03-09 04:52] LABS: HIV TYPE 1 AND 2 NEGATIVE (NEGATIVE)
== END 2018-03-07 16:53 | disposition left against medical advice (07) | DRG 812 ==
LOC: EDBD 03-05 07:44 → OBSVTOIN 03-05 07:44 → F2N 03-05 08:43 → F3E 03-06 14:18
PROVIDERS: ADMIT Internal Medicine; ATTEND Hospitalist
PROC: HZ2ZZZZ Detoxification Services for Substance Abuse Treatment (ICD-10-PCS; principal; 2018-03-05)
DX: T40.2X1A Poisoning by other opioids, accidental (unintentional), initial encounter (principal); F11.121 Opioid abuse with intoxication delirium; F15.220 Other stimulant dependence with intoxication, uncomplicated; F15.23 Other stimulant dependence with withdrawal; R33.9 Retention of urine, unspecified; B18.2 Chronic viral hepatitis C; L55.0 Sunburn of first degree; F32.9 Major depressive disorder, single episode, unspecified; F31.9 Bipolar disorder, unspecified; Z59.0 Homelessness
CPT/HCPCS: 80305; 82947-QW; 96374; 97161-GP; G0472; G0480; J1650; J2060

== ENCOUNTER 2018-03-11 00:57 | Emergency (ER) | payer MEDICAID ==
--- NOTE | 2018-03-11 01:27 | EDPHY ---
H & P Stated Complaint: L leg pain and swelling after fall Time Seen by Provider: 03/11/18 01:15 HPI/ROS: Chief Complaint: Leg pain and swelling HPI: 28-year-old male's presenting with left leg pain and swelling which began earlier today after a fall. Patient states that he was standing on a rock when he slipped and struck the front of his left leg. He has had significant pain and swelling since that time. Patient was discharged 2 days ago after being admitted for an accidental opioid overdose. Patient has a history of bipolar disorder and hepatitis. Denies hitting his head. No loss of consciousness. Patient denies injecting heroin into his legs, states he only uses his arms. No fevers or chills. He is a little unclear as to time frame in dates because he is continuing to use opioids. ROS: 10 point Review of Systems is negative except as noted in the HPI. PMH: Hepatitis-C, chronic opioid abuse, bipolar disorder Social History: Positive smoking, heroin use Family History: non-contributory Physical Exam: Gen: Awake, Alert, No Distress HEENT: Nose: no rhinorrhea Eyes: PERRLA, EOMI Mouth: Moist mucosa Neck: Supple, no JVD Chest: nontender, lungs clear to auscultation Heart: S1, S2 normal, no murmur Abd: Soft, non-tender, no guarding Back: no CVA tenderness, no midline tenderness Ext: Left leg is markedly add edematous from his ft just below the knee. There is a small abrasion in the anterior lower 3rd of the leg. He has significant edema. No obvious deformity Skin: no rash Neuro: CN II-XII intact, Sensation grossly intact, Strength 5/5 in bilateral upper and lower extremities - Personal History Current Tetanus/Diphtheria Vaccine: Yes - Medical/Surgical History Hx Asthma: No Hx Chronic Respiratory Disease: No Hx Diabetes: No Hx Cardiac Disease: No Hx Renal Disease: No Hx Cirrhosis: No Hx Alcoholism: No Hx HIV/AIDS: No Hx Splenectomy or Spleen Trauma: No Other PMH: bipolar, anxiety, depression, heroin abuse, hep C - Social History Smoking Status: Current every day smoker Constitutional: Initial Vital Signs Temperature (C) 37.7 C 03/11/18 01:17 Heart Rate 119 H 03/11/18 01:17 Respiratory Rate 18 03/11/18 01:17 Blood Pressure 144/70 H 03/11/18 01:17 O2 Sat (%) 97 03/11/18 01:17 O2 Delivery Mode Room Air Allergies/Adverse Reactions: No Known Allergies Allergy (Unverified 03/05/18 14:27) Home Medications: Medication Instructions Recorded Mirtazapine [Remeron] 30 mg PO BID 03/05/18 Multivitamins [Multivitamin (*)] 1 each PO DAILY 03/05/18 OLANZapine [Zyprexa] 20 mg PO HS 03/05/18 busPIRone [Buspar (*)] 20 mg PO BID 03/05/18 Medical Decision Making - Diagnostics Imaging Results: Left leg x-rays and ankle x-rays are negative per my interpretation. Left lower extremity ultrasound is negative for DVT. It is positive for cellulitis per Dr. Waters. ED Course/Re-evaluation: 28-year-old male with a history of opioid dependence and heroin use is presenting with redness and swelling of his left leg. X-rays are negative. Ultrasound is negative for DVT but is positive for cellulitis. I do not appreciate an abscess either on ultrasound on examination. IV is been placed. Blood cultures have been drawn. I have ordered vancomycin. I have discussed with Dr. Cuevas, hospitalist. He will admit to his service for further care. 0245 Mr. Downs is elected to leave the hospital against medical advice. He pulled out his IV. I have discussed with him at length and explained that this infection is extremely dangerous. Kidney that he could lose his leg or he can get a blood borne infection which could cause and ago septic and that he could . Patient understands that he is risking his life by leaving the hospital against medical advice. We have offered him oral antibiotics here. He is refusing any further treatment. He pulled the IV out and left the department without further conversation. - Data Points Laboratory Results: Laboratory Results 03/11/18 02:30 03/11/18 03/11/18 02:30 02:30 WBC 9.54 10^3/uL H 10^3/uL (3.80-9.50) RBC 4.07 10^6/uL L 10^6/uL (4.40-6.38) Hgb 12.2 g/dL L g/dL (13.7-17.5) Hct 35.0 % L % (40.0-51.0) MCV 86.0 fL fL (81.5-99.8) MCH 30.0 pg pg (27.9-34.1) MCHC 34.9 g/dL g/dL (32.4-36.7) RDW 15.1 % % (11.5-15.2) Plt Count 268 10^3/uL 10^3/uL (150-400) MPV 8.4 fL L fL (8.7-11.7) Neut % (Auto) 72.1 % % (39.3-74.2) Lymph % (Auto) 16.5 % % (15.0-45.0) [place] % (Auto) 10.0 % % (4.5-13.0) Eos % (Auto) 0.4 % L % (0.6-7.6) Baso % (Auto) 0.5 % % (0.3-1.7) Nucleat RBC Rel Count 0.0 % % (0.0-0.2) Absolute Neuts (auto) 6.88 10^3/uL H 10^3/uL (1.70-6.50) Absolute Lymphs (auto) 1.57 10^3/uL 10^3/uL (1.00-3.00) Absolute Monos (auto) 0.95 10^3/uL H 10^3/uL (0.30-0.80) Absolute Eos (auto) 0.04 10^3/uL 10^3/uL (0.03-0.40) Absolute Basos (auto) 0.05 10^3/uL 10^3/uL (0.02-0.10) Absolute Nucleated RBC 0.00 10^3/uL 10^3/uL (0-0.01) Immature Gran % 0.5 % % (0.0-1.1) Immature Gran # 0.05 10^3/uL 10^3/uL (0.00-0.10) Sodium Pending Potassium Pending Chloride Pending Carbon Dioxide Pending Anion Gap Pending BUN Pending Creatinine Pending Estimated GFR Pending Glucose Pending Calcium Pending Total Bilirubin Pending AST Pending ALT Pending Alkaline Phosphatase Pending Total Protein Pending Albumin Pending Departure - Departure Disposition: [facility] Inpatient Acute Clinical Impression: Cellulitis Condition: Fair Referrals: NONE *PRIMARY CARE P,. [Primary Care Provider] - As per Instructions
[2018-03-11] MEDS ORDERED: VANCOMYCIN HCL/NORMAL SALINE 250 ML IV ONE (02:18)
[2018-03-11] MEDS ORDERED: ACETAMINOPHEN 325 MG TAB PO PRN (02:22)
[2018-03-11] MEDS ORDERED: ONDANSETRON 4 MG/2 ML VIAL IVP PRN (02:22)
[2018-03-11] MEDS ORDERED: ONDANSETRON DISINTEGRATING 4 MG TAB PO PRN (02:22)
[2018-03-11 02:45] LABS: PLATELET COUNT 268 10^3/uL (150-400)
[2018-03-11 02:54] VITALS: BP 123/62
== END 2018-03-11 02:59 | disposition left against medical advice (07) ==
LOC: UNDOADMOB 02:22
DX: L03.116 Cellulitis of left lower limb (principal); F17.200 Nicotine dependence, unspecified, uncomplicated
CPT/HCPCS: J3370

== ENCOUNTER 2018-03-11 04:41 | Inpatient (IN) | payer MEDICAID ==
[2018-03-11] MEDS ORDERED: ACETAMINOPHEN 325 MG TAB PO PRN (05:01)
[2018-03-11] MEDS ORDERED: ONDANSETRON 4 MG/2 ML VIAL IVP PRN (05:01)
[2018-03-11] MEDS ORDERED: ONDANSETRON DISINTEGRATING 4 MG TAB PO PRN (05:01)
[2018-03-11] MEDS ORDERED: VANCOMYCIN HCL/NORMAL SALINE 250 ML IV ONE (05:07)
--- NOTE | 2018-03-11 05:07 | EDPHY ---
H & P Stated Complaint: Poss osteomyelitis, Left leg, swelling, pain Time Seen by Provider: 03/11/18 04:48 HPI/ROS: Chief Complaint: Left leg pain HPI: 28-year-old male who I just saw in the emergency department left against medical advice. He has a left leg cellulitis. Patient left against medical advice after he was informed that he needed to be admitted for IV antibiotics. He has a history of IV drug use and was recently admitted for overdose. He says after leaving he sober up some more and considered his situation and decided he does want to be admitted for treatment. He denies having use drugs after he left AMA. ROS: 10 point Review of Systems is negative except as noted in the HPI. PMH: Opioid dependence Social History: Positive smoking, IV heroin use Family History: non-contributory Physical Exam: Gen: Awake, Alert, No Distress HEENT: Nose: no rhinorrhea Eyes: PERRLA, EOMI Mouth: Moist mucosa Neck: Supple, no JVD Chest: nontender, lungs clear to auscultation Heart: S1, S2 normal, no murmur Abd: Soft, non-tender, no guarding Back: no CVA tenderness, no midline tenderness Ext: Left leg is erythematous and swollen from the midfoot to the calf, warm to touch Skin: no rash Neuro: CN II-XII intact, Sensation grossly intact, Strength 5/5 in bilateral upper and lower extremities - Personal History Current Tetanus Diphtheria and Acellular Pertussis (TDAP): No - Medical/Surgical History Hx Asthma: No Hx Chronic Respiratory Disease: No Hx Diabetes: No Hx Cardiac Disease: No Hx Renal Disease: No Hx Cirrhosis: No Hx Alcoholism: No Hx HIV/AIDS: No Hx Splenectomy or Spleen Trauma: No Other PMH: bipolar, anxiety, depression, heroin abuse, hep C - Social History Smoking Status: Current every day smoker Constitutional: Initial Vital Signs Temperature (C) 36.8 C 03/11/18 04:42 Heart Rate 100 03/11/18 04:42 Respiratory Rate 20 03/11/18 04:42 Blood Pressure 136/74 H 03/11/18 04:42 O2 Sat (%) 97 03/11/18 04:42 O2 Delivery Mode Room Air Allergies/Adverse Reactions: No Known Allergies Allergy (Verified 03/11/18 04:42) Home Medications: Medication Instructions Recorded Mirtazapine [Remeron] 30 mg PO BID 03/05/18 Multivitamins [Multivitamin (*)] 1 each PO DAILY 03/05/18 OLANZapine [Zyprexa] 20 mg PO HS 03/05/18 busPIRone [Buspar (*)] 20 mg PO BID 03/05/18 Medical Decision Making ED Course/Re-evaluation: 28-year-old male with cellulitis of his left leg. He left earlier AMA. He now wants to stay and be admitted for IV antibiotics. IV is been placed. I have ordered vancomycin for him. I have discussed with Dr. Cuevas, hospitalist. He will admit to his service. Departure - Departure Disposition: [facility] Inpatient Acute Clinical Impression: Cellulitis Condition: Fair Referrals: NONE *PRIMARY CARE P,. [Primary Care Provider] - As per Instructions
--- NOTE | 2018-03-11 05:08 | PDGENHP ---
History and Physical - Chief Complaint L leg pain - History of Present Illness 28 yo M w/ polysubstance abuse p/w L leg pain. Patient was recently admitted after opiate overdose. He was discharged with plans to visit an outpatient drug treatment center. Yesterday he was standing on a rock and fell, scraping his L link. Today he was found down in a [employer] bathroom after using heroine and methamphetamine. Upon arrival to the ED his LLE was noted to be red and swollen. He denies fevers and chills but he is complaining of pain and swelling of his LLE. History Information - Allergies/Home Medication List Allergies/Adverse Reactions: No Known Allergies Allergy (Verified 03/11/18 04:42) Home Medications: Mirtazapine [Remeron] 30 mg PO BID 03/05/18 [Last Taken 6 Days Ago ~02/27/18] Multivitamins [Multivitamin (*)] 1 each PO DAILY 03/05/18 [Last Taken 6 Days Ago ~02/27/18] OLANZapine [Zyprexa] 20 mg PO HS 03/05/18 [Last Taken 6 Days Ago ~02/27/18] busPIRone [Buspar (*)] 20 mg PO BID 03/05/18 [Last Taken 6 Days Ago ~02/27/18] I have personally reviewed and updated: family history, medical history - Past Medical History Additional medical history: Reports bipolar disease, reports that he is on Zyprexa and Remeron, reports he has not been taking recently - Surgical History Reports: no pertinent surgical hx - Family History Additional family history: Asked, denies - Social History Smoking Status: Current every day smoker Additional social history: Unobtainable from the patient at this time Review of Systems Review of Systems: ROS: 10pt was reviewed & negative except for what was stated in HPI & below Physical Exam Physical Exam: Temp Pulse Resp BP Pulse Ox 36.8 C 100 20 136/74 H 97 03/11/18 04:42 03/11/18 04:42 03/11/18 04:42 03/11/18 04:42 03/11/18 04:42 Constitutional: no apparent distress, not in pain Eyes: PERRL, EOMI Ears, Nose, Mouth, Throat: moist mucous membranes, no oral mucosal ulcers Cardiovascular: regular rate and rhythym, no murmur, rub, or gallop Respiratory: no respiratory distress, no rales or rhonchi Gastrointestinal: normoactive bowel sounds, soft, non-tender abdomen Skin: warm, erythema (LLE, w/ swelling) Musculoskeletal: full muscle strength, no joint effusions Neurologic: AAOx3, CN II-XII Intact Psychiatric: interacting appropriately, not anxious Assessment & Plan Assessment: 28 yo M w/ polysubstance abuse p/w LLE cellulitis. Plan: 1. LLE cellulitis - Likely resulting from scrape on anterior LLE. This happened rather quickly so I doubt abscess or OM as complicating factors. He has clear MRSA risk factors with hx of drug use. - Admit for observation - Blood cultures pending - Vancomycin IV for now 2. Polysubstance abuse - Still using heroine and methamphetamines. Plans to enter outpatient treatment soon. Diet - Regular Code - Full Ppx - Low risk Dispo - Admit under observation status
[2018-03-11] MEDS: IBUPROFEN 200 MG TAB PO PRN ×2 (08:06→20:41)
[2018-03-11] MEDS: NICOTINE 21 MG/24 HR PATCH TD SCH (08:08)
--- NOTE | 2018-03-11 13:59 | ASMTCMCOM ---
CM Note CM Note Notes: Pt is a homeless male admitted for left leg cellulitis. He is currently on IV vanco. Cultures are pending. Pt is bipolar per H&P and has a hx of opiate use. CM will follow for DC planning. Date Signed: 03/11/2018 01:58 PM Electronically Signed By:Christi Pollard LCSW
[2018-03-11] MEDS: MULTIVITAMINS 1 EACH TAB PO SCH (14:52)
[2018-03-11] MEDS: busPIRone 10 MG TAB PO SCH ×2 (14:52→20:41)
--- NOTE | 2018-03-11 15:08 | HOSPPROG ---
Hospitalist Progress Note Assessment/Plan: 28 yo M w/ polysubstance abuse p/w LLE cellulitis. Plan: 1. LLE cellulitis - Likely resulting from scrape on anterior LLE. This happened rather quickly so I doubt abscess or OM as complicating factors. He has clear MRSA risk factors with hx of drug use. - some improvement in appearance on vancomycin, will continue for now - Blood cultures pending - will transition to oral abx in coming 1-2 days if continues to improve 2. Polysubstance abuse - Still using heroine and methamphetamines. Plans to enter outpatient treatment soon. Diet - Regular Code - Full Ppx - Low risk Dispo -IP status Subjective: no significant overnight events, patient somnolent Objective: Vital Signs Temp Pulse Resp BP Pulse Ox 36.9 C 88 12 138/79 H 95 03/11/18 08:20 03/11/18 08:20 03/11/18 08:20 03/11/18 08:20 03/11/18 08:20 03/10/18 03/11/18 03/12/18 05:59 05:59 05:59 Intake Total 50 Output Total 0 1100 Balance 50 -1100 somnolent, minimally arousable anicteric op clear rrr no mrg cta b soft nt nd lle with erythema/edema, area of abrasion noted warm dry well perfused ICD10 Worksheet Patient Problems: Problems Problem Status Onset Cellulitis Acute Opiate use Acute Polysubstance abuse Acute
[2018-03-11] MEDS: VANCOMYCIN 1.25 GM in NS 250 ML IV SCH (16:37)
[2018-03-11] MEDS: MIRTAZAPINE 30 MG TAB PO SCH (20:41)
[2018-03-11] MEDS: OLANZapine 10 MG TAB PO SCH (20:41)
[2018-03-12] MEDS: VANCOMYCIN 1.25 GM in NS 250 ML IV SCH (04:56)
--- NOTE | 2018-03-12 07:57 | PDMN ---
Medical Necessity Medical necessity: Change to IP, as of 03/11/18, per MD; los >2 m for ongoing management of LLE cellulitis & polysubstance abuse; admit for further monitoring & IV abx; hx recent hospitalization for opiate overdose, homelessness ; per progress note & order 03/11/18
[2018-03-12] MEDS: NICOTINE 21 MG/24 HR PATCH TD SCH (08:39)
[2018-03-12] MEDS: MULTIVITAMINS 1 EACH TAB PO SCH (08:39)
[2018-03-12] MEDS: busPIRone 10 MG TAB PO SCH ×2 (08:39→20:49)
--- NOTE | 2018-03-12 16:31 | HOSPPROG ---
Hospitalist Progress Note Assessment/Plan: 28 yo M w/ polysubstance abuse p/w LLE cellulitis. Plan: 1. LLE cellulitis - Likely resulting from scrape on anterior LLE. He has clear MRSA risk factors with hx of drug use. - significant improvement overnight and will transition to oral abx 2. Polysubstance abuse/withdrawal - Still using heroine and methamphetamines prior to admission, evidence of withdrawal with significant somnolence. Plans to enter outpatient treatment soon. Diet - Regular Code - Full Ppx - Low risk Dispo -IP status Subjective: no significant overnight events, still with significant withdrawal and sleeping all day Objective: Vital Signs Temp Pulse Resp BP Pulse Ox 37.1 C 97 16 141/84 H 96 03/12/18 15:44 03/12/18 15:44 03/12/18 15:44 03/12/18 15:44 03/12/18 15:44 03/11/18 03/12/18 03/13/18 05:59 05:59 05:59 Intake Total 50 650 Output Total 0 1400 1100 Balance 50 -750 -1100 somnolent, minimally arousable anicteric op clear rrr no mrg cta b soft nt nd lle with erythema/edema--improved from prior, area of abrasion noted warm dry well perfused ICD10 Worksheet Patient Problems: Problems Problem Status Onset Cellulitis Acute Opiate use Acute Polysubstance abuse Acute
[2018-03-12] MEDS: CEPHALEXIN 500 MG CAP PO SCH ×2 (17:41→23:46)
[2018-03-12] MEDS: MIRTAZAPINE 30 MG TAB PO SCH (20:48)
[2018-03-12] MEDS: OLANZapine 10 MG TAB PO SCH (20:49)
[2018-03-12] MEDS: DOXYCYCLINE HYCLATE 100 MG CAP/TAB PO SCH (20:49)
[2018-03-13] MEDS: CEPHALEXIN 500 MG CAP PO SCH ×2 (05:16→11:53)
[2018-03-13 05:23] VITALS: BP 132/84
[2018-03-13 08:21] LABS: PLATELET COUNT 329 10^3/uL (150-400)
[2018-03-13] MEDS: DOXYCYCLINE HYCLATE 100 MG CAP/TAB PO SCH (09:33)
[2018-03-13] MEDS: MULTIVITAMINS 1 EACH TAB PO SCH (09:33)
[2018-03-13] MEDS: busPIRone 10 MG TAB PO SCH (09:33)
[2018-03-13] MEDS: NICOTINE 21 MG/24 HR PATCH TD SCH (09:33)
--- NOTE | 2018-03-13 09:54 | PDDCSUM ---
Discharge Summary Discharge Summary: Dates of service 03/11-03/13/18 Consultations/procedures: none Hospital course by problem: 28 yo M w/ polysubstance abuse p/w LLE cellulitis. 1. LLE cellulitis - Likely resulting from scrape on anterior LLE. He has clear MRSA risk factors with hx of drug use. - significant improvement on vancomycin initially and continued to improve on oral doxy/keflex -will dc on doxy/keflex with a plan of 10 days of treatment 2. Polysubstance abuse/withdrawal - Still using heroin and methamphetamines prior to admission, evidence of withdrawal with significant somnolence. -patient notes that he has a plan to enter treatment, withdrawal seems to be largely complete by the time of discharge Diet - Regular Code - Full Ppx - Low risk Dispo -dc home--patient homeless, given information regarding jail options and f/u at [facility], given meds via [facility] program >. 35 min spent in dc more than half in coordination of care
--- NOTE | 2018-03-13 11:29 | ASMTLACE ---
UDAYE Length of stay for Answers: 3 days current admission Acuity / Level of Answers: Yes Care: Did the patient have an inpatient admission? Comorbidities - select Answers: Other Notes: Cellulitis all that apply # of Emergency department Answers: 3-4 visits in the last 6 months Social determinants Answers: History of substance abuse (ETOH, street drugs, prescription drugs, etc.) Homelessness (street, long term) Mental health diagnosis (anxiety, depression, pers onality disorders, etc.) Lack of community resources and/or lack of social support (no pcp, lives alone, transportation, david d) Score: 23 Date Signed: 03/13/2018 11:28 AM Electronically Signed By:Christi Pollard LCSW
--- NOTE | 2018-03-13 11:36 | ASMTCMCOM ---
CM Note CM Note Notes: Pt ready for DC today. Set pt up f/u appt with [facility] for March 17 at 3:00 with Hernandez Dominguez. Pt given bus pass and clothing. Pt declined a detention bed and stated he has a place to stay in [place]. Date Signed: 03/13/2018 11:35 AM Electronically Signed By:Christi Pollard LCSW
== END 2018-03-13 12:57 | disposition home or self-care (01) | DRG 383 ==
LOC: OBSVTOIN 05:01 → F1N 06:04
PROVIDERS: ADMIT Student in an Organized Health Care Education/Training Program; ATTEND Student in an Organized Health Care Education/Training Program
DX: L03.116 Cellulitis of left lower limb (principal); F11.23 Opioid dependence with withdrawal; F15.23 Other stimulant dependence with withdrawal; Z59.0 Homelessness; Z72.0 Tobacco use
CPT/HCPCS: J3370

== ENCOUNTER 2018-03-21 10:47 | Inpatient (IN) | payer MEDICAID ==
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
[2018-03-21] MEDS ORDERED: VANCOMYCIN HCL/NORMAL SALINE 250 ML IV ONE (11:50)
[2018-03-21] MEDS ORDERED: NS 1,000 ML IV ONE (11:50)
[2018-03-21 12:23] LABS: PLATELET COUNT 361 10^3/uL (150-400)
--- NOTE | 2018-03-21 12:50 | ASMTCMCOM ---
CM Note CM Note Notes: Pt presented to the ED for worsening LLE cellulitis. Pt recently d/c'd from [facility] 03/13/18 (admitted 03/11-03/13; left AMA at first but then returned to be admitted). Pt was provided Keflex and instructions to follow up with [facility] on 03/17/18. Pt states he did not go to the appt and he did not complete the antibiotic doses. Pt has history of IV heroin and meth use; his last use was 3-4 hours prior to coming to the ED. Pt lives in an apt w/roomates in [place] and [place] [address] [place] [address] [place] exchange. Pt states both of his roommates use heroin and many of his neighbors sell it. Pt states he would like to move away from that situation and relocate to [place] because "it is nicer here and people are more friendly." Pt also has been trying to stay off of heroin for 24 hrs so he can start on Suboxone at the [facility] , located in the [facility]. Pt also mentioned he is on probation so he is unsure if he can just scrap picker and relocate to [place]. Pt states he is keeping in contact w/his P.O. We discussed that if pt were to move to [place], he would need to complete the Coordinated Entry process and he'd probably be referred to the [facility] program and he would receive outpt case mgmt assistance w/coordinating follow up at [facility], [facility] (pt has a history of bipolar disorder and states he has not been taking his medications), and w/[facility]'s Suboxone clinic ([phone]; located at [facility] at [address] [place] [address]). If pt wants to return to [place], pt may need assistance w/transportation, appt at [facility], get set-up w/a PCP in [place], etc. Pt states his sister, Iveth, lives in [place] and that she would probably let him stay w/her if he is able to get clean and/or on Suboxone. Pt's mother lives in [place] but is flying into [place] on 03/23 and this will be the first time he has seen her in ~9 years. Exact DC needs unknown but anticipate pt to DC home and would benefit from assistance w/ various followup appts, transportation, medications, etc. CM to follow. Date Signed: 03/21/2018 12:49 PM Electronically Signed By:Jane Arana RN
--- NOTE | 2018-03-21 12:52 | ASMTLACE ---
MARY # of Emergency department Answers: 5-8 visits in the last 6 months Social determinants Answers: History of substance abuse (ETOH, street drugs, prescription drugs, etc.) Mental health diagnosis (anxiety, depression, pers onality disorders, etc.) Lack of community resources and/or lack of social support (no pcp, lives alone, transportation, david d) Score: 14 Date Signed: 03/21/2018 12:51 PM Electronically Signed By:Jane Arana RN
[2018-03-21] MEDS ORDERED: ONDANSETRON DISINTEGRATING 4 MG TAB PO PRN (13:17)
[2018-03-21] MEDS ORDERED: ACETAMINOPHEN 325 MG TAB PO PRN (13:17)
[2018-03-21] MEDS ORDERED: ONDANSETRON 4 MG/2 ML VIAL IVP PRN (13:17)
[2018-03-21] MEDS ORDERED: IBUPROFEN 600 MG TAB PO PRN (13:19)
[2018-03-21] MEDS ORDERED: LORazepam 2 MG/ML INJ IVP PRN (13:19)
[2018-03-21] MEDS ORDERED: LOPERAMIDE HCL 2 MG CAP PO PRN (13:19)
[2018-03-21] MEDS: NICOTINE 21 MG/24 HR PATCH TD SCH (15:41)
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
[2018-03-21] MEDS: OLANZapine 10 MG TAB PO SCH (20:39)
[2018-03-21] MEDS: MIRTAZAPINE 30 MG TAB PO SCH (20:39)
[2018-03-21] MEDS: busPIRone 10 MG TAB PO SCH (20:39)
[2018-03-21] MEDS: VANCOMYCIN 1.25 GM in NS 250 ML IV SCH (23:16)
--- NOTE | 2018-03-22 10:02 | HOSPPROG ---
Hospitalist Progress Note Assessment/Plan: #Left leg cellulitis -echo to r/o endocarditis, but refused this morning -repeat U/S for DVT -discussed with Dr. Perez. Will change to Anc until have further culture data #Bipolar/depression/anxiety: home meds #HCV positive: candidate for treatment if refrains from drugs #Polysubstance abuse: coming off high today, agitated. PRN Ativan, Advil, loperamide #Diet: regular #DVT ppx: Lovenox #Disp: cont inpatient admission for IV abx, echo. Subjective: very lethargic today. Combative with staff, refused echo Objective: Vital Signs Temp Pulse Resp BP Pulse Ox 36.9 C 83 16 125/78 H 96 03/22/18 08:00 03/22/18 08:00 03/22/18 08:00 03/22/18 08:00 03/22/18 08:00 03/21/18 03/22/18 03/23/18 05:59 05:59 05:59 Intake Total 200 Balance 200 - Time Spent With Patient Time Spent with Patient: greater than 35 minutes Time Spent with Patient: Greater than 35 minutes spent on this patients care, greater than 50% of time spent counseling, educating, and coordinating care regarding the above mentioned plan. - Physical Exam Constitutional: other (very somnolent, barely answers questions) Eyes: PERRL Ears, Nose, Mouth, Throat: moist mucous membranes Cardiovascular: regular rate and rhythym, systolic murmur Respiratory: no respiratory distress Gastrointestinal: normoactive bowel sounds Genitourinary: no bladder fullness Skin: other (scabbed lesions over face, neck and extremities. Left leg swollen compare to right. Scabbed lesion over link. Erythema and warmth over lower leg) Neurologic: CN II-XII Intact Psychiatric: flat affect ICD10 Worksheet Patient Problems: Problems Problem Status Onset Cellulitis of left lower extremity Acute Failure of outpatient treatment Acute Heroin use Acute Intravenous drug user Acute Methamphetamine use Acute Cellulitis Acute Opiate use Acute Polysubstance abuse Acute
[2018-03-22] MEDS ORDERED: oxyCODONE IR 5 MG TAB PO PRN (12:49)
[2018-03-22] MEDS: VANCOMYCIN 1.25 GM in NS 250 ML IV SCH (13:05)
--- NOTE | 2018-03-22 13:21 | ASMTCMCOM ---
CM Note CM Note Notes: CM chart review & spoke with RN, patient is not receptive to engaging in conversation at this point. CM to follow. Current D/C plan: TBD. Date Signed: 03/22/2018 01:20 PM Electronically Signed By:Jackie Dawson
--- NOTE | 2018-03-22 13:38 | GCON ---
[f rep st] CONSULTATION INFECTIOUS DISEASE CONSULTATION REFERRING PHYSICIAN: Maria Fernanda Faria MD SOURCE OF HISTORY: Chart review and patient history using yes or no questions. HISTORY OF PRESENT ILLNESS: 28-year-old male with a history of drug use including methamphetamines a nd heroin, last used on the day of admission, 03/21/2018, who presents to the emergency room for pers istent left lower extremity cellulitis and fever and malaise. Patient's problems date back to March 11 when he was advised to be admitted to the hospital for left lower extremity cellulitis, but he lef t AMA, but then he immediately returned and was admitted from 03/11 to 03/13, but then improved and w as discharged on doxycycline and Keflex, but he has missed some doses and he began feeling poorly the last couple days and represented to the emergency room. His main complaints are left leg pain, swel ling, malaise, and fever. He also describes chills on the night of admission. No other GI symptoms. Patient denies any significant improvement in his left lower extremity pain compared to admission. [place] had a DVT study on 03/11/2018, that was negative, as well as an x-ray on 03/11/2018, that was also negative for fracture and just showed soft tissue swelling. On that admission, he had 1 set of blood cultures that were taken and was negative. PAST MEDICAL HISTORY: Bipolar, anxiety, depression, IV drug use. He has been using IV drugs for 2-1 /2 years. He has also had third-degree hoover over his upper extremity and chest. Hep C positive. PAST SURGICAL HISTORY: As above. FAMILY HISTORY: Father had cirrhosis, diabetes, hepatitis. Mom is healthy. SOCIAL HISTORY: He is homeless. Smokes a pack a day x13 years. IV drug use as above. He is on pro bation. Denies sexual activity. ALLERGIES: NKDA. MEDICATIONS: Buspar, Zyprexa, Remeron, Keflex, and doxycycline, but patient was started on IV vancom ycin once he was admitted. REVIEW OF SYSTEMS: Review of systems was performed based on yes/no questions from patient at bedside . A complete 10-point review of systems was performed and is negative except as mentioned in the HPI . The patient is also complaining of pimples on his face. PHYSICAL EXAM: VITAL SIGNS: Blood pressure 121/69, heart rate 83, respiratory rate 16, saturation 9 6% on room air, temperature 36.7, T-max 37.1. Weight is 71 kg. GENERAL: This is a very sleepy male , but responding to yes/no questions appropriately. HEENT: Difficult exam, but no obvious oral ulce rations. He has some scabs on his face that look like pimples versus picking his skin. NECK: Suppl e. CARDIOVASCULAR: Regular rate. No murmur. CHEST: Clear to auscultation bilaterally. ABDOMEN: Soft, nontender. EXTREMITIES: His left lower extremity had edema to the knee with some diffuse war mth. He had tenderness of his calf to palpation as well as the anterior link and dorsum of his foot. He had some mild erythema immediately surrounding a 2 cm vertical laceration on his knee. He had 2 + dorsalis pedis pulses. He had no pain with range of motion of his knee or ankle. SKIN: Remarkabl e paucity of track hinojosa. NEUROLOGIC: He is seen to be moving all 4 extremities equally. LAB: White count 7.8, hematocrit 36, platelets 361, 64% neutrophils. Creatinine 0.8, AST 73, ALT 11 0. Review of past serologies on 03/07/2018, shows hep B surface antigen negative, hep C antibody positiv e, HIV antibody negative, repeat HIV antibody antigen is pending. IMAGING: None performed yet. ASSESSMENT AND PLAN: 28-year-old male with left lower extremity cellulitis. Degree of erythema is f airly limited, but patient has significant warmth and swelling over the entire dorsum and lower leg w ith mild tenderness to palpation without pain with joint movement. RECOMMENDATIONS: 1. Elevation of left lower extremity. 2. Would repeat DVT study. 3. Due to lack of purulence, would try transitioning patient to IV cefazolin 1 g IV q.8 and monitor the clinical response. Patient certainly has some risk for methicillin-resistant Staphylococcus tulio us with a history of IV drug use, but clinically in the absence of purulence and more streptococcal a ppearance of erythema, would try narrow antibiotic coverage. This was discussed with Dr. Faria. We will continue to see patient on a daily basis. /[id number]/MODL
[2018-03-22] MEDS: ENOXAPARIN 40 MG/0.4 ML SYR SC SCH (13:39)
[2018-03-22] MEDS: NICOTINE 21 MG/24 HR PATCH TD SCH (13:39)
[2018-03-22] MEDS: busPIRone 10 MG TAB PO SCH ×2 (13:39→21:16)
[2018-03-22] MEDS: OLANZapine 10 MG TAB PO SCH (21:16)
[2018-03-22] MEDS: MIRTAZAPINE 30 MG TAB PO SCH (21:16)
[2018-03-23] MEDS: NICOTINE 21 MG/24 HR PATCH TD SCH (08:43)
[2018-03-23] MEDS: busPIRone 10 MG TAB PO SCH ×2 (08:43→21:01)
[2018-03-23] MEDS: ENOXAPARIN 40 MG/0.4 ML SYR SC SCH (10:00)
--- NOTE | 2018-03-23 13:35 | HOSPPROG ---
Hospitalist Progress Note Assessment/Plan: #Left leg cellulitis -echo to r/o endocarditis; he refused study yesterday -repeat U/S negative for DVT -discussed with Dr. Perez. Will change to Anc until have further culture data #Bipolar/depression/anxiety: home meds #HCV positive: candidate for treatment if refrains from drugs #Polysubstance abuse: coming off high today, agitated. PRN Ativan, Advil, loperamide #Oral lesions: neg HSV #Diet: regular #DVT ppx: Lovenox #Disp: cont inpatient admission for IV abx, echo. Subjective: very tired. Pain in leg is less painful Objective: Vital Signs Temp Pulse Resp BP Pulse Ox 36.5 C 94 15 116/66 94 03/23/18 04:00 03/23/18 09:00 03/23/18 09:00 03/23/18 04:00 03/23/18 09:00 Microbiology 03/21/18 15:50 Herpes Simplex Virus I (PCR) - Final Dermal - Vesicle Hsv-1 Dna Not Detected Herpes Simplex Virus II (PCR) - Final Hsv-2 Dna Not Detected - Final 03/22/18 03/23/18 03/24/18 05:59 05:59 05:59 Intake Total 200 450 Output Total 625 900 Balance 200 -175 -900 - Time Spent With Patient Time Spent with Patient: greater than 25 minutes Time Spent with Patient: Greater than 25 minutes spent on this patients care, greater than 50% of time spent counseling, educating, and coordinating care regarding the above mentioned plan. - Physical Exam Constitutional: no apparent distress Eyes: PERRL Ears, Nose, Mouth, Throat: moist mucous membranes, other (multiple scabbed lesions over face, corners of mouth) Cardiovascular: regular rate and rhythym, systolic murmur Respiratory: no respiratory distress Gastrointestinal: normoactive bowel sounds, soft, non-tender abdomen Genitourinary: no bladder fullness Skin: warm Musculoskeletal: full muscle strength, other (left leg with less swelling/ erythema. ) Neurologic: AAOx3, CN II-XII Intact Psychiatric: interacting appropriately ICD10 Worksheet Patient Problems: Problems Problem Status Onset Cellulitis of left lower extremity Acute Failure of outpatient treatment Acute Heroin use Acute Intravenous drug user Acute Methamphetamine use Acute Cellulitis Acute Opiate use Acute Polysubstance abuse Acute
--- NOTE | 2018-03-23 15:40 | PCMIDPN ---
Assessment/Plan: Assessment: Left lower extremity cellulitis-on cefazolin. Clinically the leg is less painful and red. The swelling is greatly decreased. At this point in treatment is probably reasonable to switch to oral Keflex 500 mg 4 times daily to complete a 10 day course. Cardiac murmur-evaluable as outpatient. No other signs of blood stream infection or other Dinero's criteria findings to indicate workup for endocarditis. Plan: 1. Transition over to p.o. Keflex 500 mg 4 times daily. Duration 10 days total. 2. Cleared for discharge. Follow up in ID clinic in 7-10 days. 03/23/18 15:37 Subjective: Patient is resting in his hospital bed. Lights are out. Not very talkative. Denies complaint. Wants to go home. States he has a home in [facility] that he can stay at in [place]. Objective: Cefazolin # 1 Vital Signs Temp Pulse Resp BP Pulse Ox 36.5 C 94 15 116/66 94 03/23/18 04:00 03/23/18 09:00 03/23/18 09:00 03/23/18 04:00 03/23/18 09:00 Microbiology 03/21/18 15:50 Herpes Simplex Virus I (PCR) - Final Dermal - Vesicle Hsv-1 Dna Not Detected Herpes Simplex Virus II (PCR) - Final Hsv-2 Dna Not Detected - Final 03/22/18 03/23/18 03/24/18 05:59 05:59 05:59 Intake Total 200 450 Output Total 625 900 Balance 200 -175 -900 - Physical Exam General Appearance: WD/WN, alert, no apparent distress, non-toxic Respiratory: lungs clear, normal breath sounds, No respiratory distress Cardiac/Chest: regular rate, rhythm, No tachycardia Extremities: non-tender, No normal inspection, No necrosis, No erythema Skin: normal color, warm/dry, No rash Neuro/Psych: alert, normal mood/affect, oriented x 3 ICD10 Worksheet Patient Problems: Problems Problem Status Onset Cellulitis of left lower extremity Acute Failure of outpatient treatment Acute Heroin use Acute Intravenous drug user Acute Methamphetamine use Acute Cellulitis Acute Opiate use Acute Polysubstance abuse Acute
--- NOTE | 2018-03-23 17:09 | ASMTCMCOM ---
CM Note CM Note Notes: Two attempts made to meet with patient today but he was too somnolent both times. Will try again tomorrow. CM will follow. Date Signed: 03/23/2018 05:09 PM Electronically Signed By:Isa Estrada LCSW
[2018-03-23] MEDS: MIRTAZAPINE 30 MG TAB PO SCH (21:01)
[2018-03-23] MEDS: OLANZapine 10 MG TAB PO SCH (21:01)
[2018-03-24] MEDS: NICOTINE 21 MG/24 HR PATCH TD SCH (07:58)
[2018-03-24] MEDS: busPIRone 10 MG TAB PO SCH (07:58)
[2018-03-24] MEDS: ENOXAPARIN 40 MG/0.4 ML SYR SC SCH (09:15)
--- NOTE | 2018-03-24 09:18 | GDS ---
[f rep st] DISCHARGE SUMMARY ALL DIAGNOSES: 1. Left leg cellulitis. 2. Bipolar/depression/anxiety. 3. Hepatitis C. 4. Polysubstance abuse. 5. Oral lesions likely from meth use. 6. Metabolic encephalopathy likely due to methamphetamine. HOSPITAL COURSE: This is a 28-year-old man admitted with a left lower extremity cellulitis. He was initially treated with vancomycin and Ancef with significant improvement. He transitioned to Keflex on the day of discharge. He has been seen by infectious disease as well. Plan will be to complete a total of 10 days of antibiotics. He should follow up in Infectious Disease Clinic in 7-10 days. He has been given Dr. Palumbo's information. He did have a murmur on exam. He has been afebrile without a white count here. Blood cultures have been negative. Echocardiogram showed no vegetation. He has active hepatitis C with slightly elevated LFTs. He should follow up with Infectious Disease for consideration of treatment if he maintains his sobriety. He was somewhat confused after having used methamphetamines. Strongly recommend cessation. BILLING: I spent more than 30 minutes on the day of discharge coordinating care. /[id number]/MODL MTDD
[2018-03-24 09:29] VITALS: BP 100/58
--- NOTE | 2018-03-24 10:13 | ECHO ---
[email or web address] [address] [address] Main: [phone] Fax: Transthoracic Echocardiogram Name: KATHARINA MULLINS MR#: [id number] Study Date: 03/24/2018 Study Time: 09:32 AM Date of : 1990 Age: 28 year(s) Height: 182.9 cm (72 in.) Weight: 77.11 kg (170 lb.) BSA: 1.99 m2 Gender: Male Examination: Echo Indication: IVDA, Eval for endocarditis Image Quality: Contrast: Requested by: Maria Fernanda Faria BP: 100 mmHg/58 mmHg Heart Rate: Rhythm: Indication: IVDA, Eval for endocarditis Procedure Staff Dry Roller: Viral Saucedo RDCS Reading Physician: Faisal Boswell MD Requesting Provider: Conclusions: Normal size left ventricle. Normal global systolic LV function. EF is 68 %. No regional wall motion abnormality. Normal RV function. The mitral valve is normal in appearance and function. The aortic valve is normal in appearance and function. The tricuspid valve is normal in appearance and function. The pulmonic valve is normal in appearance and function. No previous Measurements: Chambers Valvular Assessment AV/MV Valvular Assessment TV/PV Normal Normal Normal Name Value Range Name Value Range Name Value Range Ao Mari (MM): 3.5 cm (2.2 cm-3.7 AV Vmax: 0.90 m/s (1 m/s-1.7 PV Vmax: 0.83 m/s (0.6 m/s-0.9 cm) m/s) m/s) IVSd (2D): 0.8 cm (0.6 cm-1.1 AV maxP mmHg ( - ) PV PGmax: 3 mmHg ( - ) cm) LVOT Vmax: 0.80 m/s (0.7 m/s-1.1 LVDd (2D): 5.0 cm (4.2 cm-5.9 m/s) cm) MV E Vmax: 0.62 m/s ( - ) LVDs (2D): 3.1 cm (2.1 cm-4 MV A Vmax: 0.43 m/s ( - ) cm) MV E/A: 1.44 ( - ) LVPWd (2D): 0.9 cm (0.6 cm-1 cm) LVEF (2D): 68 (>=54 %) Continued Measurements: Chambers Valvular Assessment AV/MV Patient: KATHARINA MULLINS Study Date: 03/24/2018 Page 1 of 2 09:32 AM Name Value Name Value LADs Lon.0 cm MV E' Septal: 0.11 m/s LA Area: 17.8 cm2 MV E/E' Septal: 5.40 LA Volume: 60 ml MV E/E' Lateral: 6.00 LA Volume Index: 30.2 ml/m2 Findings: Left Ventricle: Normal size left ventricle. Normal global systolic LV function. EF is 68 %. No regional wall motion abnormality. Right Ventricle: Normal size right ventricle. Normal RV function. Left Atrium: The left atrium is normal in size. Right Atrium: The right atrium is normal in size. Mitral Valve: The mitral valve is normal in appearance and function. Aortic Valve: The aortic valve is tri-leaflet. The aortic valve is normal in appearance and function. Tricuspid Valve: The tricuspid valve is normal in appearance and function. Pulmonic Valve: The pulmonic valve is normal in appearance and function. Aorta: The aorta is normal. Pericardium: No pericardial effusion. Exam Comments: There is no obvious vegetation noted on the valve.. (No Signature Object) Patient: KATHARINA MULLINS Study Date: 03/24/2018 Page 2 of 2 09:32 AM D:_[id number]
--- NOTE | 2018-03-24 10:47 | ASDISCHSUM ---
Discharge Information Plan Status:Home with No Needs Medically Cleared to Leave:03/24/2018 Discharge Date:03/24/2018 CM D/C Disposition:Home, Routine, Self-Care ADT D/C Disposition:Home, Routine, Self-Care Projected Discharge Date:03/24/2018 12:00 AM Transportation at D/C:Bus Ticket Discharge Delay Reason: Follow-Up Date:03/24/2018 12:00 AM Discharge Slot:2 - 12:01 pm - 18:00 pm Final Diagnosis:Polysubstance abuse Placement Information Patient Contact Information Contact Name:DONELLSHIN Relationship: Address: Home Phone: Work Phone: City: Alternate Phone: State/Fast Asset Code: Email: Financial Information Financial Class:Medicaid Primary Plan Desc:MED[employer] [place] Primary Plan Number:[id number] Secondary Plan Desc: Secondary Plan Number: Assessment Information [facility] CM Progress Note CM Note CM Note Notes: Pt presented to the ED for worsening LLE cellulitis. Pt recently d/c'd from [facility] 03/13/18 (admitted 03/11-03/13; left AMA at first but then returned to be admitted). Pt was provided Keflex and instructions to follow up with [facility] on 03/17/18. Pt states he did not go to the appt and he did not complete the antibiotic doses. Pt has history of IV heroin and meth use; his last use was 3-4 hours prior to coming to the ED. Pt lives in an apt w/roomates in [place] and [place] [address] [place] exchange. Pt states both of his roommates use heroin and many of his neighbors sell it. Pt states he would like to move away from that situation and relocate to [place] because "it is nicer here and people are more friendly." Pt also has been trying to stay off of heroin for 24 hrs so he can start on Suboxone at the [facility] , located in the [facility]. 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 Pt states he is keeping in contact w/his P.O. We discussed that if pt were to move to [place], he would need to complete the Coordinated Entry process and he'd probably be referred to the [facility] Path to Home program and he would receive outpt case mgmt assistance w/coordinating follow up at [facility], [facility] (pt has a history of bipolar disorder and states he has not been taking his medications), and w/[facility]'s Suboxone clinic ([phone]; located at [facility] at [address] [place] [address]). If pt wants to return to [place], pt may need assistance w/transportation, appt at [facility], get set-up w/a PCP in [place], etc. Pt states his sister, Iveth, lives in [place] and that she would probably let him stay w/her if he is able to get clean and/or on Suboxone. Pt's mother lives in [place] but is flying into [place] on 03/23 and this will be the first time he has seen her in ~9 years. Exact DC needs unknown but anticipate pt to DC home and would benefit from assistance w/ various followup appts, transportation, medications, etc. CM to follow. Date Signed: 03/21/2018 12:49 PM Electronically Signed By:Jane Arana RN LACE MARY # of Emergency department Answers: 5-8 visits in the last 6 months Social determinants Answers: History of substance abuse (ETOH, street drugs, prescription drugs, etc.) Mental health diagnosis (anxiety, depression, pers onality disorders, etc.) Lack of community resources and/or lack of social support (no pcp, lives alone, transportation, david d) Score: 14 Date Signed: 03/21/2018 12:51 PM Electronically Signed By:Jane Arana RN [facility] CM Progress Note CM Note CM Note Notes: CM chart review & spoke with RN, patient is not receptive to engaging in conversation at this point. CM to follow. Current D/C plan: TBD. Date Signed: 03/22/2018 01:20 PM Electronically Signed By:Jackie Dawson [facility] CM Progress Note CM Note CM Note Notes: Two attempts made to meet with patient today but he was too somnolent both times. Will try again tomorrow. CM will follow. Date Signed: 03/23/2018 05:09 PM Electronically Signed By:Isa Estrada LCSW Intervention Information
[2018-03-24] MEDS ORDERED: CEPHALEXIN 500 MG CAP PO SCH (12:00)
== END 2018-03-24 11:55 | disposition home or self-care (01) | DRG 383 ==
LOC: F3E 12:41
PROVIDERS: ADMIT Hospitalist; ATTEND Hospitalist
DX: L03.116 Cellulitis of left lower limb (principal); G93.41 Metabolic encephalopathy; F31.9 Bipolar disorder, unspecified; F41.8 Other specified anxiety disorders; B19.20 Unspecified viral hepatitis C without hepatic coma; F15.10 Other stimulant abuse, uncomplicated; K13.70 Unspecified lesions of oral mucosa; F11.10 Opioid abuse, uncomplicated; E86.9 Volume depletion, unspecified
CPT/HCPCS: 87529-90; 96365; J0690; J1650; J2060; J3370

== ENCOUNTER 2018-04-17 14:59 | Emergency (ER) | payer MEDICAID, OTHER ==
--- NOTE | 2018-04-17 16:07 | CPEKG ---
Heart Rate: 77 RR Interval: 779 P-R Interval: 192 QRSD Interval: 110 QT Interval: 400 QTC Interval: 453 P Dumont: 63 QRS Dumont: 63 T Wave Dumont: 47 EKG Severity - ABNORMAL ECG - EKG Impression: SINUS RHYTHM EKG Impression: NONSPECIFIC INTRAVENTRICULAR CONDUCTION DELAY Electronically Signed By: Darwin Pearce 19-Apr-2018 09:07:36
[2018-04-17] MEDS ORDERED: NS 1,000 ML IV ONE (16:14)
--- NOTE | 2018-04-17 16:44 | EDPHY ---
H & P Time Seen by Provider: 04/17/18 15:53 HPI/ROS: HPI Chest aching, anxiety. Body aches. 28-year-old male on foot. History of heroin abuse, bipolar, anxiety and mood disorders presents with complaint of 2 weeks of body aches, anxiety, and a sensation of tightness in his chest. Last heroin use was 4 hr ago. ROS: Constitutional: No fever, no chills. As above. Eyes: No discharge. No changes in vision. ENT: No sore throat. No nasal congestion or rhinorrhea. Respiratory: No cough. No shortness of breath. Cardiac: As above, no palpitations. Gastrointestinal: No abdominal pain, no vomiting, no diarrhea. Genitourinary: No hematuria. No dysuria or increased frequency with urination. Musculoskeletal: No back pain. No neck pain. As above. Skin: No rashes. Neurological: No headache. No focal weakness or altered sensation. Past medical history: Bipolar, anxiety, depression, mood disorder, hepatitis-C , cellulitis, history of hoover to 33% of his body. Social history: Heroin abuse and polysubstance abuse. Denies alcohol. Currently here by himself. Physical Exam: General Appearance: Alert staring at his I phone, no apparent distress. Flat affect. This patient is responding to questions appropriately and in full sentences. This patient appears well-hydrated and well-nourished. Eyes: Pupils equal and round no pallor or injection. No lid edema, erythema or injection. Respiratory: There are no retractions, lungs are clear to auscultation with good air movement bilaterally. Cardiovascular: Regular rate and rhythm. No murmur. Gastrointestinal: Abdomen is soft and nontender, no masses, bowel sounds normal. No focal tenderness at McBurney's point. No Machado sign. Neurological: Motor sensory function is grossly intact. Cranial nerves are normal. Gait is normal. Skin: Warm and dry, no rashes. Musculoskeletal: Neck is supple and nontender. Extremities are symmetrical. All joints range without pain or impingement. Psychiatric: No agitation. No depression. Database: EKG: EKG time is 3:59 p.m.; EKG shows a narrow complex normal sinus rhythm with a ventricular rate of 77. Nonspecific intraventricular conduction delay noted. The OK, QRS, QT intervals are within normal limits. There are no ST-T wave changes indicative of ischemic or injury pattern. No evidence of right heart strain. Interpreted by me. Imaging: Chest x-ray AP portable: The cardiac mediastinal silhouette is unremarkable. No evidence of infiltrate or pneumothorax. No acute cardiopulmonary disease process noted. Interpreted by me. Procedures: Emergency department course: IV placed in triage. Patient started on IV normal saline with 1 L to be given over the next hour. Vital signs reviewed and are unremarkable. The patient does not appear to be in any distress. EKG obtained and reviewed by myself. Chest x-ray to be obtained. 4:50 p.m., patient re-evaluated. He looks well. His chest x-ray is unremarkable. A point of care troponin was obtained and is negative. His EKG is unremarkable. His presentation is consistent with either a narcotic withdrawal syndrome or anxiety reaction. Possibly a viral syndrome. His emergency department testing has been reassuring. I feel that acute coronary syndrome, pulmonary embolism, aortic dissection or unlikely. His vital signs have remained normal throughout his emergency department course. I feel a sympathomimetic toxicity is also unlikely. He feels comfortable going home at this time and I feel he is safe for discharge. Follow-up and return to emergency department precautions have been reviewed with him. All of his questions were answered. He was discharged from the emergency department in good condition. Differential Diagnosis: The differential diagnosis on this patient includes but is not limited to anxiety reaction, heroin withdrawal, viral syndrome. Acute coronary syndrome, pulmonary embolism, aortic dissection, pneumonia, pneumothorax, pericarditis, myocarditis unlikely. This represents a partial list of diagnoses considered. These considerations are based on history, physical exam, past history, reassessment and diagnostic testing. Smoking Status: Heavy smoker Constitutional: Initial Vital Signs Temperature (C) 36.7 C 04/17/18 15:03 Heart Rate 85 04/17/18 15:03 Respiratory Rate 18 04/17/18 15:03 Blood Pressure 145/90 H 04/17/18 15:03 O2 Sat (%) 98 04/17/18 15:03 O2 Delivery Mode Room Air Allergies/Adverse Reactions: No Known Allergies Allergy (Verified 03/11/18 04:42) Home Medications: Medication Instructions Recorded Mirtazapine [Remeron] 30 mg PO HS 03/21/18 OLANZapine [Zyprexa] 20 mg PO HS 03/21/18 busPIRone [Buspar (*)] 20 mg PO BID 03/21/18 Cephalexin [Keflex (*)] 500 mg PO Q6 #32 cap 03/24/18 Medical Decision Making - Data Points Medications Given: Discontinued Medications Sodium Chloride (Ns) 1,000 mls @ 0 mls/hr IV EDNOW ONE; Wide Open PRN Reason: Protocol Stop: 04/17/18 16:15 Last Admin: 04/17/18 16:34 Dose: 1,000 mls Point of Care Test Results: Chemistry 04/17/18 16:25 POC Troponin I 0.00 ng/mL ng/mL (0.00-0.08) Departure - Departure Disposition: Home, Routine, Self-Care Clinical Impression: Myalgia, Chest discomfort, Anxiety Condition: Good Instructions: Chest Pain (ED), Anxiety (ED) Additional Instructions: Read and follow provided instructions. Follow-up with your primary care physician in 1-2 days for re-evaluation. Ibuprofen dosin mg every 6 hours with meals for the next 3 days only. Take only as needed for pain. Return to the emergency department for worsening symptoms or other serious concerns. Referrals: NONE *PRIMARY CARE P,. [Primary Care Provider] - As per Instructions
[2018-04-17 17:15] VITALS: BP 142/77
== END 2018-04-17 17:15 | disposition home or self-care (01) ==
DX: F41.9 Anxiety disorder, unspecified (principal); M79.1 Myalgia; R07.89 Other chest pain; E86.9 Volume depletion, unspecified; F17.200 Nicotine dependence, unspecified, uncomplicated
CPT/HCPCS: 84484-PO

== ENCOUNTER 2018-09-06 01:17 | Emergency (ER) | payer MEDICAID, OTHER ==
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
[2018-09-06 02:58] VITALS: BP 129/67
--- NOTE | 2018-09-07 04:05 | CPEKG ---
Test Reason : OPEN Blood Pressure : / mmHG Vent. Rate : 070 BPM Atrial Rate : 070 BPM P-R Int : 162 ms QRS Dur : 104 ms QT Int : 405 ms P-R-T Axes : 023 056 053 degrees QTc Int : 437 ms Sinus rhythm Confirmed by Kinsey Palomino ([id number]) on 09/07/2018 4:04:50 AM Referred By: Confirmed By:Kinsey Palomino
== END 2018-09-06 03:07 | disposition home or self-care (01) ==
DX: R07.9 Chest pain, unspecified (principal); F15.10 Other stimulant abuse, uncomplicated; F11.10 Opioid abuse, uncomplicated